=== PATIENT | male | born 1950 | race Caucasian/White ===

== ENCOUNTER 2021-07-15 07:45 | Day surgery (SDC) | payer OTHER ==
[2021-07-13 11:43] VITALS: BMI 26.6
[~2021-07-15 07:45] MED LIST: LACTATED RINGERS 1,000 ML IV SCH
[2021-07-15 08:30] VITALS: RESP 16; TEMP 97.5
[2021-07-15] MEDS ORDERED: LIDOCAINE 1% (10MG/ML) FOR IV START INTRADERMA ONE (08:35)
[2021-07-15] MEDS ORDERED: PROPOFOL 10 MG/ML 20 ML VIAL IV ONE (09:22)
[2021-07-15 09:45] VITALS: PULSE 78
--- NOTE | 2021-07-15 09:46 | P.PCN ---
Date of Procedure: 07/15/21 Procedure(s) Performed: BRIEF HISTORY: Patient is a 71-year-old pleasant white male scheduled for an elective colonoscopy as a part of screening for colorectal neoplasia. PROCEDURE PERFORMED: Colonoscopy biopsy. PREOPERATIVE DIAGNOSIS: Screening for colon cancer. IV sedation per Anesthesia. PROCEDURE: After informed consent was obtained, the patient, was brought into the endoscopy unit. IV sedation was administered by Anesthesia under continuous monitoring. Digital rectal examination was normal. Initially the Olympus CF-160 flexible video colonoscope was then inserted in the rectum, gradually advanced into the cecum without any difficulty. Careful examination was performed as the scope was gradually being withdrawn. Ileocecal valve and the appendiceal orifice were visualized and appeared normal. Prep was excellent. Mucosa of the cecum, ascending colon, transverse colon, descending colon, sigmoid colon, and rectum appeared normal. As a millimeter polyp noted in the sigmoid colon that was removed by cold biopsy. Moderate sigmoid diverticulosis seen. Retroflexion was performed in the rectum and no lesions were seen. The patient tolerated the procedure well. IMPRESSION: 3 mm sigmoid: Polyp status post biopsy Moderate sigmoid diverticulosis Recommendations Findings of this examination were were discussed with the patient as well as his family. He was advised to with the biopsy results. If the biopsy results adenoma he can have a repeat colonoscopy in 5 years. .
[2021-07-15 10:04] VITALS: BP 126/84
== END 2021-07-15 10:40 ==
LOC: ORWHC2ENDO 07:45
PROVIDERS: ATTEND Internal Medicine Gastroenterology
DX: Z12.11 Encounter for screening for malignant neoplasm of colon (principal); D12.5 Benign neoplasm of sigmoid colon; K57.30 Diverticulosis of large intestine without perforation or abscess without bleeding; I10 Essential (primary) hypertension; Z85.46 Personal history of malignant neoplasm of prostate; K21.9 Gastro-esophageal reflux disease without esophagitis; Z79.1 Long term (current) use of non-steroidal anti-inflammatories (NSAID); Z79.899 Other long term (current) drug therapy; Z98.890 Other specified postprocedural states; Z88.8 Allergy status to other drugs, medicaments and biological substances
CPT/HCPCS: 88305; 45380; J2704

== ENCOUNTER → 2021-07-30 | Outpatient (CLI) | payer OTHER ==
--- NOTE | 2021-07-30 17:06 | MR ---
EXAMINATION TYPE: MR lumbar spine wo con DATE OF EXAM: 07/30/2021 COMPARISON: None HISTORY: Low back pain TECHNIQUE: Multiplanar, multisequence images of the lumbar spine were acquired without IV contrast. The lumbar vertebral segments are normal in height. There is a grade 2 anterolisthesis of L5 on S1 secondary to bilateral spondylolysis of L5. The disc spaces are normal in height. There is no lumbar disc herniation. There is no spinal stenosis or neuroforaminal stenosis Impression: Grade two anterolisthesis of L5 on S1 secondary to bilateral spondylolysis of L5. No disc herniatio n or spinal stenosis
== END | disposition home or self-care (01) ==
LOC: RADMRIMAIN 14:26
PROVIDERS: ATTEND Physician Assistant
DX: M54.50 Low back pain, unspecified (principal)
CPT/HCPCS: 72148

== ENCOUNTER → 2022-05-16 | Outpatient (CLI) | payer OTHER ==
--- NOTE | 2022-05-16 11:21 | MR ---
EXAMINATION TYPE: MR lumbar spine wo con DATE OF EXAM: 05/16/2022 COMPARISON: MRI 07/30/2021, CT scan 05/05/2022 HISTORY: LUMBAR RADICULOPATHY, back pain TECHNIQUE: T1 and T2 axial and sagittal images of the lumbar spine are submitted. FINDINGS: There is no abnormal signal seen within the visualized spinal cord or paraspinal soft tissu es. Multiple vertebral body hemangioma. At L1-2 there is degenerative disc disease with no discrete herniation or canal stenosis. No foramina l encroachment. Neural foramina remain patent. At L2-3 there is sagittal disc bulging with no evidence of disc herniation, canal stenosis, or forami nal encroachment. Hypertrophic change of the facets. At L3-4 there is degenerative disc disease with facet arthropathy. No foraminal encroachment or canal stenosis. No disc herniation. Minimal sagittal disc bulging. At L4-5 there is degenerative disc disease with facet arthropathy. No canal stenosis or foraminal enc roachment. At L5-S1 there is grade 2 anterolisthesis with bilateral spondylolysis of L5. Severe degenerative dis c disease. Moderate to severe bilateral foraminal encroachment. IMPRESSION: 1. Severe degenerative disc disease L5-S1 with grade 2 anterolisthesis secondary to bilateral spondyl olysis. 2. Multilevel degenerative disc disease.
== END | disposition home or self-care (01) ==
LOC: RADMRIMAIN 10:12
PROVIDERS: ATTEND Orthopaedic Surgery
DX: M43.16 Spondylolisthesis, lumbar region (principal); M54.16 Radiculopathy, lumbar region
CPT/HCPCS: 72148

== ENCOUNTER → 2022-07-21 | Outpatient (CLI) | payer OTHER ==
--- NOTE | 2022-07-21 10:35 | XR ---
EXAMINATION TYPE: XR chest 2V DATE OF EXAM: 07/21/2022 10:11 AM COMPARISON: None TECHNIQUE: XR chest 2V Frontal and lateral views of the chest. CLINICAL INDICATION:Male, 72 years old with history of [id number]; FINDINGS: Lungs/Pleura: There is no evidence of pleural effusion, focal consolidation, or pneumothorax. Pulmonary vascularity: Unremarkable. Heart/mediastinum: Cardiomediastinal silhouette is unremarkable. Musculoskeletal: No acute osseous pathology. IMPRESSION: No acute cardiopulmonary disease/process.
[2022-07-21 17:33] LABS: Basophils # (A) 0.04 X 10*3/uL (0.00-0.10); Basophils % (A) 0.8 %; Eosinophils # (A) 0.19 X 10*3/uL (0.04-0.35); HCT 40.7 % (39.6-50.0); HGB 13.5 g/dL (13.0-17.0); Immature Grans, Automated 0.2 %; Lymphocytes # (A) 0.95 X 10*3/uL (0.90-5.00); Lymphocytes % (A) 20.2 %; MCH 30.4 pg (27.0-32.0); MCHC 33.2 g/dL (32.0-37.0); MCV 91.7 fL (80.0-97.0); Mean Platelet Volume 10.6 fL (9.5-12.2); Monocytes # (A) 0.46 X 10*3/uL (0.20-1.00); Monocytes % (A) 9.8 %; NRBC Per 100 WBC 0 /100 WBCS (0.0-0.0); Neutrophils # (A) 3.06 X 10*3/uL (1.80-7.70); Platelet Count 272 X 10*3/uL (140-440); RBC 4.44 X 10*6/uL (4.40-5.60); RDW 12.2 % (11.5-14.5); WBC 4.71 X 10*3/uL (4.50-10.00)
[2022-07-21 17:51] LABS: African American GFR (CKD) 107.7 (60.0-200.0); Anion Gap 9.3 mmol/L (10.00-18.00); Blood Urea Nitrogen 20.3 mg/dL (9.0-27.0); Calcium 9.1 mg/dL (8.7-10.3); Carbon Dioxide 26.7 mmol/L (20.0-27.5); Potassium 4.1 mmol/L (3.5-5.5)
[2022-07-21 18:17] LABS: INR 0.96 (0.90-1.11); Prothrombin Time 10.9 sec (9.9-11.9)
== END | disposition home or self-care (01) ==
LOC: LABPAT 09:51
PROVIDERS: ATTEND Orthopaedic Surgery
DX: Z01.812 Encounter for preprocedural laboratory examination (principal); M16.11 Unilateral primary osteoarthritis, right hip; Z22.322 Carrier or suspected carrier of Methicillin resistant Staphylococcus aureus
CPT/HCPCS: 71046; 80048; 85025; 85610; 87070; 93005

== ENCOUNTER 2022-08-01 08:12 | Observation (INO) | payer OTHER ==
[2022-07-27 15:50] VITALS: BMI 27.3
--- NOTE | 2022-07-31 08:52 | P.HPOR ---
History of Present Illness H&P Date: 07/31/22 Chief Complaint: Right hip pain The patient is a 72-year-old retired male presents with progressive right hip pain for the past year worsening recently. He notes pain with any weightbearing activities. He has a difficult time getting up from a seated position. He notes it does lock on him. He has groin and thigh pain. He also has a history of lower back problems. He's been using a cane. Review of Systems As per HPI Past Medical History Past Medical History: Cancer, GERD/Reflux, Hyperlipidemia, Hypertension, Osteoarthritis (OA) Additional Past Medical History / Comment(s): HX PROSTATE CANCER. RT KNEE-RT HIP VERY PAINFUL WHEN WEIGHT IS ON THEM History of Any Multi-Drug Resistant Organisms: None Reported Past Surgical History: Hernia Repair, Orthopedic Surgery, Prostate Surgery Additional Past Surgical History / Comment(s): RT KNEE SCOPE. BILAT INGUINAL HERNIA REPAIR. RT INGUINAL HERNIA REPAIR WITH MESH. COLONOSOCPY. PROSTATECTOMY 2000? PILONIDAL CYSTECTOMY Past Anesthesia/Blood Transfusion Reactions: No Reported Reaction Smoking Status: Former smoker - Past Family History Father Family Medical History: Deep Vein Thrombosis (DVT) Medications and Allergies Home Medications Medication Instructions Recorded Confirmed Type Ascorbic Acid [Vitamin C] 500 mg PO DAILY 07/13/21 07/27/22 History Aspirin 81 mg PO DAILY 07/13/21 07/27/22 History Calcium Carbonate/Vitamin D3 1 each PO DAILY 07/13/21 07/27/22 History [Calcium 600 mg-D3 10 Mcg (400 Iu)] Cholecalciferol [Vitamin D3 (25 50 mcg PO DAILY 07/13/21 07/27/22 History Mcg = 1000 Iu)] Enalapril [Vasotec] 5 mg PO BID 07/13/21 07/27/22 History Ezetimibe [Zetia] 10 mg PO DAILY 07/13/21 07/27/22 History Imipramine [Tofranil] 25 mg PO HS 07/13/21 07/27/22 History Meloxicam [Mobic] 7.5 mg PO TID 07/13/21 07/27/22 History Naproxen Sodium [Aleve] 220 mg PO BID 07/13/21 07/27/22 History Omeprazole [PriLOSEC] 20 mg PO AC-BRKFST 07/13/21 07/27/22 History amLODIPine [Norvasc] 5 mg PO BID 07/13/21 07/27/22 History Allergies Allergy/AdvReac Type Severity Reaction Status Date / Time Ukavwqh-CDN-SxJ Reductase AdvReac SEVERE LEG Verified 07/27/22 15:30 Inhibitor PAIN [Qpqkpey-Bae-Zto Reductase Inhibitor] Physical Examination - Hip right Gait: antalgic Tenderness with palpation: anterior Pain with motion: internal rotation and hip flexion ROM: flexion: 70 degrees ROM: internal rotation: 0 degrees (With pain) ROM: external rotation: 50 degrees Crepitus with motion: Yes Strength: extension: 5/5 Strength: flexion: 5/5 Strength: abduction: 5/5 Tests: impingement tests: positive Results The patient is a well-developed well-nourished male proximally 5 foot 8, 175 pounds of mesomorphic habitus. HEENT exam is nonfocal, neck is supple. He does have limited LS spine motion with tenderness about the lower lumbar spine. His distal neurovascular appears intact right lower extremity. - Diagnostic results Hip x-ray: image reviewed (2 views of the right hip obtained the office show severe osteoarthrosis with rnxm-gu-gorb changes. There appears to be some central femoral head collapse.) Assessment and Plan Assessment: Right hip severe osteoarthrosissymptomatic History of prostate cancer Plan: I talked with the patient regarding his condition along with treatment options. At this point is quite symptomatically and limited because of pain related to his right hip osteoarthrosis. After a thorough discussion he opted to proceed with surgery. We will proceed with right total hip arthroplasty utilizing a lateral approach as he's had previous inguinal hernia surgery on that side. We will institute DVT prophylaxis postoperatively. Risks and benefits are discussed at length in layman's terms. Time with Patient: Less than 30
[~2022-08-01 08:12] MED LIST changes: +ACETAMINOPHEN TAB 500 MG TAB PO PRN; -LACTATED RINGERS 1,000 ML IV SCH; +LIDOCAINE 1% (10MG/ML) FOR IV START INTRADERMA PRN; +MELOXICAM 7.5 MG TAB PO PRN; +MIDAZOLAM 2 MG/2 ML VIAL IV PRN; +TRANEXAMIC ACID 1,000 MG in SODIUM CHLORIDE 0.9% 100 ML IVPB PRN
[2022-08-01] MEDS: LACTATED RINGERS 1,000 ML IV SCH ×3 (09:14→17:08)
[2022-08-01] MEDS ORDERED: ONDANSETRON 4 MG/2 ML VIAL ONE (09:24)
[2022-08-01] MEDS ORDERED: ACETAMINOPHEN TAB 500 MG TAB ONE (09:24)
[2022-08-01] MEDS ORDERED: TRANEXAMIC ACID IN NACL,ISO-OS 1,000 MG in SALINE 1 100ML.BAG IVPB PRN (09:29)
[2022-08-01] MEDS ORDERED: DEXAMETHASONE SOD PHOSPHATE 4 MG/ML 1 ML VIAL IVP ONE (09:41)
[2022-08-01] MEDS ORDERED: MIDAZOLAM 2 MG/2 ML VIAL ONE (10:15)
[2022-08-01] MEDS ORDERED: TRANEXAMIC ACID IN NACL,ISO-OS 1,000 MG/100 ML BAG ONE (10:15)
[2022-08-01] MEDS ORDERED: ROPIVACAINE 5 MG/ML 30 ML VIAL ONE (10:15)
[2022-08-01] MEDS ORDERED: fentaNYL (PF) 50 MCG/ML 2 ML AMP ONE (10:15)
[2022-08-01] MEDS ORDERED: LIDOCAINE 2% INJ 20 MG/ML (2 ML VIAL) ONE (10:15)
[2022-08-01] MEDS ORDERED: PROPOFOL 10 MG/ML 20 ML VIAL IV ONE (10:15)
[2022-08-01] MEDS ORDERED: HYDROmorphone 0.5 MG/0.5 ML SYRINGE IVP PRN ×2 (11:52)
[2022-08-01] MEDS ORDERED: HYDROcodone/APAP 5-325MG 1 EACH TAB PO PRN (11:52)
[2022-08-01] MEDS ORDERED: NALOXONE 0.4 MG/ML 1 ML VIAL IV PRN (11:52)
--- NOTE | 2022-08-01 12:15 | P.OP ---
Date of Procedure: 08/01/22 Preoperative Diagnosis: Right hip severe osteoarthrosis Postoperative Diagnosis: Same Procedure(s) Performed: Right total hip arthroplastypress-fitlateral approach Implants: Depuy Corail size 12 standard collared press-fit femoral stem, 36+1.5 cobalt chrome femoral head, 58 mm Slater acetabular shell with neutral polyethylene liner. Anesthesia: regional, spinal Surgeon: Abhi Anderson [employer] Hand #1: Jadon Friend Estimated Blood Loss (ml): 100 Pathology: other (Femoral head) Condition: stable Disposition: PACU Indications for Procedure: The patient is a 72-year-old male who presents with progressive right hip pain secondary to osteoarthrosis despite conservative measures. A discussion of the risks and benefits of operative intervention versus continued conservative measures was made with the patient. He opted to proceed with surgery. Operative risks to include infection, neurovascular injury, development of blood clots, possible leg length discrepancy, possible instability, possible component loosening/failure and need for subsequent procedures was discussed. Informed consent was obtained. Operative Findings: As below Description of Procedure: The patient was brought to the operating room, and after induction of spinal anesthesia was placed in a lateral decubitus position. The bony prominences were appropriately padded. The pelvis was stable perpendicular to the floor with a pegboard. The right lower extremity was prepped and draped in normal fashion. A 12 cm incision was then made centered over the greater trochanter extending superiorly to level the ASIS and distally in line with the femoral shaft. The skin and subcutaneous tissues were divided sharply. Electrocautery was used for hemostasis. The fascia nhan and gluteus albino fascia was split in line with the skin incision. The muscle fibers were bluntly dissected proximally. A self-retaining retractor was placed. The anterior and posterior margins of the gluteus medius muscles identified and the anterior two thirds was detached from the greater trochanter with electrocautery. The gluteus minimus tendon was identified and detached in a similar fashion. A wide capsulotomy was performed. The femoral neck fracture was identified in the lower neck cut was made approximately 1 1/2 cm above the level of the lesser trochanter with a sagittal saw at a 45 the shaft. The head was then extracted with a corkscrew. Attention was then paid towards preparing the acetabular. Anterior and posterior retractors were placed. The remaining capsular labral tissues debride d sharply clearly defining the acetabular margins. Began reaming with a 49 mm reamer taking care to initially medialize, then reaming at 45 of abduction and 20 of anteversion. Sequential reaming is performed up to 57 mm. This was down to bleeding bony surface. A trial 58 mm acetabular shell was inserted at 45 of abduction and 20 of anteversion. This was fully seated. There was good rim f it and stability. A neutral polyethylene liner was then impacted. Care taken to avoid any soft tissue interposition. Attention was then paid towards preparing the proximal femur. A box chisel was used to open the metaphyseal region. A canal finder was used to find the femoral canal. Sequential broaching was performed up to a size 12. This is placed in 15 of anteversion with the leg perpendicular floor judging off the trans-epicondylar axis. There is good rotational stability. A calcar mill was used to fashion the medial calcar. A trial standard neck along with a 36 mm + 1.5 trial head was placed. The hip was gently reduced. It was taken through range of motion. I felt to be stable in flexion and extension with internal and external rotation. I felt there was adequate sikh of soft tissue tension. The hip was gently dislocated. The trial components removed. Pulsatile lavage was utilized. The final size 12 standard collared femoral stem was inserted again with the leg perpendicular to the floor in 15 of anteversion. Again there was good rotational stability. A 36 mm + 1.5 cobalt chrome femoral head was gently impacted. The hip was gently reduced. Again it was taken through motion and felt to be stable in flexion and extension with internal and external rotation. Pulsatile lavage was again utilized. With the leg in abduction the gluteus minimus and medius tendons reattached to the greater trochanter with #2 Ethibond suture. There was minimal drainage therefore a deep drain was not placed. The fascia nhan and gluteus albino fascia was closed with #2 Ethibond suture. The subcutaneous tissues were reapproximated interrupted 2-0 Vicryl sutures. The skin was reapproximated with 3-0 subcuticular strata fix suture. Skin tape and adhesive was applied. A sterile dressing was applied. The patient was awoken from sedation and transferred to recovery room in good condition. Blood loss was estimated 100 mL. No complications were incurred. Sponge and needle counts were correct in the case. Jadon DAVEY assisted during the major composes case to include exposure, implantation, and closure.
--- NOTE | 2022-08-01 12:36 | XR ---
EXAMINATION TYPE: XR Hip Limited RT DATE OF EXAM: 08/01/2022 12:32 PM INDICATION: Patient age:Male; 72 years old; Reason for study: Status post hip surgery, assess surgical alignment; [facility]. COMPARISON: Right hip radiograph 06/19/2022. TECHNIQUE: The right hip was examined in frontal projection. FINDINGS: Post surgical changes from right total hip arthroplasty. Hardware appears intact with appro priate alignment. No acute fracture or dislocation. There is associated soft tissue edema and subcuta neous gas. Multiple surgical clips demonstrated within the pelvis. IMPRESSION: Postsurgical changes from right total hip arthroplasty. Hardware appears intact with appropriate alig nment.
--- NOTE | 2022-08-01 13:06 | P.ANPRN ---
Procedure Note - Anesthesia - Nerve Block Performed Right Erector Spinae Single Time Out Performed: Yes (950) Date of Procedure: 08/01/22 Procedure Start Time: 09:51 Procedure Stop Time: 09:56 Location of Patient: PreOp Indication: Acute Post-Operative Pain, Requested by Surgeon Specifically requested for management of pain by : Abhi Anderson Sedation Type: Sedate with meaningful contact maintained Preparation: Sterile Prep Position: Sitting Catheter: None Needle Types: Pajunk Needle Gauge: 21 Ultrasound used to visualize needle placement: Yes Ultrasound used to observe medication spread: Yes Injectate: 0.5% Ropivacaine (see comment for volume) (30cc) Blood Aspirated: No Pain Paresthesia on Injection Noted: No Resistance on Injection: Normal Image Stored and Saved: Yes Events: Uneventful and Well Tolerated
[2022-08-01] MEDS: HYDROmorphone 0.5 MG/0.5 ML SYRINGE IVP PRN ×2 (15:09→15:19)
--- NOTE | 2022-08-01 17:05 | P.CONS ---
History of Present Illness - Reason for Consult Consult date: 08/01/22 Medical Management Requesting physician: Abhi Anderson - History of Present Illness History of Presenting Illness: Patient is a very pleasant 72-year-old male with a past medical history of hypertension, hyperlipidemia, GERD, prostate cancer status post prostatectomy, and osteoarthritis. He is currently admitted under orthopedic surgery team and underwent an elective right total hip arthroplasty secondary to severe osteoarthrosis. Surgical procedure was completed by Dr. Bates. We have been consulted for medical management throughout patient's hospitalization. Patient seen and fully evaluated at bedside. Patient reports having controlled postoperative pain stating currently being managed with current pain medication regimen. he denies having any numbness or tingling in his leg. He does report having issues with intermittent chronic numbness in his right toes secondary to a pinched nerve in his back but currently denies. Patient also denies experiencing any postoperative nausea or vomiting. He is tolerating oral intake. He denies having any headache, lightheadedness, dizziness, chest pain, palpitations, shortness of breath, or experiencing any numbness/ tingling/weakness/burning in his extremities. Patient denies having a history of DVT or PE but does report family history of blood clots. Review of systems: Pertinent positives and negatives as discussed in HPI, a complete review of systems was performed and all other systems are negative. Physical exam: Vital signs reviewed and stable. General: Nontoxic, no distress and appears stated age. Derm: Skin warm and dry, normal coloration for ethnicity. Head: Atraumatic, normocephalic and symmetric. Eyes: EOMs intact, no lid lag, and anicteric sclera Mouth: no lip lesions, mucus membranes moist Cardiovascular: regular rate and rhythm with normal S1S2, no murmur, positive posterior tibial pulses bilaterally, and cap refill < 2 seconds. Lungs: Respirations even, regular, and unlabored on room air. Lungs CTA bilaterally, no rhonchi, no rales, no wheezing, and no accessory muscle usage. Abdominal: soft, nontender to palpation, no guarding, no appreciable organomegaly Ext: ROM intact. No gross muscle atrophy, no edema, no contractures Neuro: Speech clear, face symmetrical and CN II-XII grossly intact with no noted focal neuro deficits Psych: Alert and oriented to person, place, time, and situation. Appropriate and pleasant affect. Assessment and Plan of Care: Status post Right total hip arthroplasty -Management by primary admitting orthopedic surgery team including DVT p rophylaxis, pain management, weightbearing, -DVT prophylaxis currently with Xarelto. Hypertension -Monitor vital signs and continue daily medication regimen with enalapril and Norvasc. Hyperlipidemia -Continue daily medication regimen with Zetia. -Continue heart healthy and carb consistent diet. GERD -GI prophylaxis with Protonix 40 mg daily. Thank you for allowing us to participate in the care of this pleasant patient. Do not hesitate to contact us with questions. Someone can be reached from the [facility] hospitalist group all hours of the day at [phone] or via [employer]. Past Medical History Past Medical History: Cancer, GERD/Reflux, Hyperlipidemia, Hypertension, Osteoarthritis (OA) Additional Past Medical History / Comment(s): HX PROSTATE CANCER. RT KNEE-RT HIP VERY PAINFUL WHEN WEIGHT IS ON THEM History of Any Multi-Drug Resistant Organisms: None Reported Past Surgical History: Hernia Repair, Orthopedic Surgery, Prostate Surgery Additional Past Surgical History / Comment(s): RT KNEE SCOPE. BILAT INGUINAL HERNIA REPAIR. RT INGUINAL HERNIA REPAIR WITH MESH. COLONOSOCPY. PROSTATECTOMY 2000? PILONIDAL CYSTECTOMY Past Anesthesia/Blood Transfusion Reactions: No Reported Reaction Smoking Status: Former smoker - Past Family History Father Family Medical History: Deep Vein Thrombosis (DVT) Medications and Allergies Home Medications Medication Instructions Recorded Confirmed Type Ascorbic Acid [Vitamin C] 500 mg PO DAILY 07/13/21 08/01/22 History Aspirin 81 mg PO DAILY 07/13/21 08/01/22 History Calcium Carbonate/Vitamin D3 1 each PO DAILY 07/13/21 08/01/22 History [Calcium 600 mg-D3 10 Mcg (400 Iu)] Cholecalciferol [Vitamin D3 (25 50 mcg PO DAILY 07/13/21 08/01/22 History Mcg = 1000 Iu)] Enalapril [Vasotec] 5 mg PO BID 07/13/21 08/01/22 History Ezetimibe [Zetia] 10 mg PO DAILY 07/13/21 08/01/22 History Imipramine [Tofranil] 25 mg PO HS 07/13/21 08/01/22 History Meloxicam [Mobic] 7.5 mg PO TID 07/13/21 08/01/22 History Naproxen Sodium [Aleve] 220 mg PO BID 07/13/21 08/01/22 History Omeprazole [PriLOSEC] 20 mg PO AC-BRKFST 07/13/21 08/01/22 History amLODIPine [Norvasc] 5 mg PO BID 07/13/21 08/01/22 History Allergies Allergy/AdvReac Type Severity Reaction Status Date / Time Rqaycpb-QYR-RlG Reductase AdvReac SEVERE LEG Verified 08/01/22 08:58 Inhibitor PAIN [Olpuuao-Kph-Ejt Reductase Inhibitor] Physical Exam Osteopathic Statement: *. No significant issues noted on an osteopathic structural exam other than those noted in the History and Physical/Consult. Vitals: Vital Signs Temp Pulse Pulse Resp BP BP Pulse Ox 08/01/22 16:00 79 16 130/68 98 08/01/22 15:00 71 16 130/69 96 08/01/22 14:30 84 16 131/81 98 08/01/22 14:05 75 16 122/78 92 L 08/01/22 13:50 68 16 128/75 92 L 08/01/22 13:35 59 L 16 118/68 94 L 08/01/22 13:20 60 16 125/77 94 L 08/01/22 13:05 61 16 117/72 96 08/01/22 12:54 67 16 122/73 99 08/01/22 12:39 77 16 123/74 93 L 08/01/22 12:24 84 16 116/75 98 08/01/22 12:09 97.2 F L 83 16 117/83 97 08/01/22 10:00 86 18 104/63 92 L 08/01/22 08:36 97.5 F L 103 H 20 141/91 97 Intake and Output 08/01/22 08/01/22 08/01/22 06:59 14:59 22:59 Intake Total 1050 400 Output Total 100 Balance 950 400 Intake: IV 1050 400 Output: Estimated Blood Loss 100 Other: Weight 81 kg Assessment and Plan Assessment: Attending note Serge Vargas NP rendered care for this patient independently, reviewed the findings and plan as documented in the note above. I did not physically speak with our examined the patient on this date.
[2022-08-01] MEDS: HYDROcodone/APAP 7.5-325MG 1 EACH TAB PO PRN (17:14)
[2022-08-01] MEDS: amLODIPine 5 MG TAB PO SCH (20:46)
[2022-08-01] MEDS ORDERED: IMIPRAMINE 25 MG TAB PO SCH (21:00)
[2022-08-01] MEDS ORDERED: SENNOSIDES-DOCUSATE SODIUM 1 EACH TAB PO SCH (21:00)
[2022-08-02] MEDS: HYDROcodone/APAP 7.5-325MG 1 EACH TAB PO PRN ×2 (06:11→12:38)
[2022-08-02] MEDS: amLODIPine 5 MG TAB PO SCH (07:24)
[2022-08-02] MEDS ORDERED: PANTOPRAZOLE 40 MG TABLET PO SCH (07:30)
[2022-08-02 07:35] VITALS: BP 125/76; PULSE 69; RESP 18; TEMP 97.7
[2022-08-02] MEDS ORDERED: CHOLECALCIFEROL 25 MCG (1000 IU) TABLET PO SCH (09:00)
[2022-08-02] MEDS ORDERED: RIVAROXABAN 10 MG TAB PO SCH (09:00)
[2022-08-02] MEDS ORDERED: EZETIMIBE 10 MG TAB PO SCH (09:00)
[2022-08-02] MEDS ORDERED: CALCIUM CARB-VIT D 500 MG-5 MCG TAB PO SCH (09:00)
[2022-08-02] MEDS ORDERED: ASCORBIC ACID 500 MG TAB PO SCH (09:00)
[2022-08-02] MEDS ORDERED: lisinopriL 20 MG TAB PO SCH (09:00)
--- NOTE | 2022-08-02 09:24 | P.DS ---
Providers Date of admission: 08/02/22 08:47 Expected date of discharge: 08/02/22 Attending physician: Abhi Anderson Consults: 08/01/22 11:55 Consult Physician Routine Consulting Provider: Nasrin Watkins Consult Reason/Comments: Medical Management S/P RIGHT TOTAL HIP ARTHROPLASTY Do you want consulting provider notified?: Yes Primary care physician: [facility] Hospital Course: Date of admission: 08/01/2022 Date of discharge: 08/02/2022 Admission diagnosis: Right hip osteoarthritis Discharge diagnosis: Same Attending physician: Dr. Anderson Surgical procedures: Right total hip arthroplasty Brief history: Patient is a 72-year-old male with a history of progressive primary right hip ostoarthritis. At this point patient has failed conservative treatment measures and has opted to proceed with a elective right total hip arthroplasty. Hospital course: Details of patient's surgery can be found in operative report. Patient tolerated the procedure well and was subsequently transported to orthopedic floor. Patient's orthopeidc and medical care was provided daily. Patient had daily laboratory tests performed for evaluation of overall blood counts. Patient had daily physical therapy to include strengthening range of motion as well as education with walker ambulation. Patient was treated with Xarelto for their postoperative DVT prophylaxis during their inpatient stay. Patient was noted to have a relatively uneventful postoperative course. Patient reported satisfactory pain control with oral pain medications by postoperative day 1. Patient showed satisfactory progress with physical therapy. Patient moved steadily through the program and had no difficulty meeting the goals by postoperative day 1. Given patient's otherwise satisfactory course and having met physical therapy goals, plan is to discharge patient home with health services on postoperative day 1. Discharge condition/disposition: Patient will be discharged home with health ser vices in stable condition. Discharge medications: Instructions are given on resumption of patient's normal daily medications per primary care recommendation, in addition patient will be prescribed [place]; Colace; Eliquis 2.5 mg BID x2 weeks. Discharge instructions: 1. Wound care and infection precautions, keep incision dry and covered while showering, no lotions, creams, moisturizers. No soaking, tubs, pools, hottubs. Do not scrub over the incision. 2. Weight-bear as tolerated with walker / cane until follow-up. 3. Ice and elevate when necessary. Do not exceed 20 minutes per hour with ice pack. 4. Utilize compression sleeve until seen at first follow up appointment. 5. Visiting nursing care. 6. Home physical therapy 7. Pain meds and anticoagulants per prescription. 8. Pain medication has potential to cause constipation. Increase oral fluid and fiber intake. Contact primary care provider if you have not had a bowel movement within 48 hours after discharge 9. No anti-inflammatory medication until discussed at first post operative visit, this including Motrin, Aleve, Mobic, Diclofenac 10. Follow up in office at 2 weeks postop with Lei Pineda PA-C / Jadon Friend PA-C 11. Follow up with your primary care doctor 7-10 days after discharge. 12. Contact [facility] with any questions, . Keep incision clean, dry, intact. While showering, cover fusion tape with Saran wrap. Keep fusion tape on until follow-up appointment in office in 2 weeks Medications: [place]; Colace; Eliquis 2.5 mg BID x2 weeks. Assessment: Right hip osteoarthritis Procedures: Right total hip arthroplasty Patient Condition at Discharge: Good Plan - Discharge Summary Discharge Rx Participant: Yes New Discharge Prescriptions: New Apixaban [Eliquis] 2.5 mg PO BID #60 tab Docusate [Colace] 100 mg PO DAILY #30 capsule HYDROcodone/APAP 7.5-325MG [[place] 7.5] 1 each PO Q6HR PRN #28 tab PRN Reason: Pain No Action Naproxen Sodium [Aleve] 220 mg PO BID Cholecalciferol [Vitamin D3 (25 Mcg = 1000 Iu)] 50 mcg PO DAILY Calcium Carbonate/Vitamin D3 [Calcium 600 mg-D3 10 Mcg (400 Iu)] 1 each PO DAILY amLODIPine [Norvasc] 5 mg PO BID Enalapril [Vasotec] 5 mg PO BID Ascorbic Acid [Vitamin C] 500 mg PO DAILY Omeprazole [PriLOSEC] 20 mg PO AC-BRKFST Imipramine [Tofranil] 25 mg PO HS Ezetimibe [Zetia] 10 mg PO DAILY Aspirin 81 mg PO DAILY Meloxicam [Mobic] 7.5 mg PO TID Discharge Medication List Ascorbic Acid [Vitamin C] 500 mg PO DAILY 07/13/21 [History] Aspirin 81 mg PO DAILY 07/13/21 [History] Calcium Carbonate/Vitamin D3 [Calcium 600 mg-D3 10 Mcg (400 Iu)] 1 each PO DAILY 07/13/21 [History] Cholecalciferol [Vitamin D3 (25 Mcg = 1000 Iu)] 50 mcg PO DAILY 07/13/21 [History] Enalapril [Vasotec] 5 mg PO BID 07/13/21 [History] Ezetimibe [Zetia] 10 mg PO DAILY 07/13/21 [History] Imipramine [Tofranil] 25 mg PO HS 07/13/21 [History] Meloxicam [Mobic] 7.5 mg PO TID 07/13/21 [History] Naproxen Sodium [Aleve] 220 mg PO BID 07/13/21 [History] Omeprazole [PriLOSEC] 20 mg PO AC-BRKFST 07/13/21 [History] amLODIPine [Norvasc] 5 mg PO BID 07/13/21 [History] Apixaban [Eliquis] 2.5 mg PO BID #60 tab 08/02/22 [Rx] Docusate [Colace] 100 mg PO DAILY #30 capsule 08/02/22 [Rx] HYDROcodone/APAP 7.5-325MG [[place] 7.5] 1 each PO Q6HR PRN #28 tab 08/02/22 [Rx] Follow up Appointment(s)/Referral(s): Jadon Friend PAC [PHYSICIAN INFORMATION SECURITY DIRECTOR] - 08/17/22 8:40 am Patient Instructions/Handouts: Total Hip Replacement (DC) Activity/Diet/Wound Care/Special Instructions: Discharge instructions: 1. Wound care and infection precautions, keep incision dry and covered while showering, no lotions, creams, moisturizers. No soaking, tubs, pools, hottubs. Do not scrub over the incision. 2. Weight-bear as tolerated with walker / cane until follow-up. 3. Ice and elevate when necessary. Do not exceed 20 minutes per hour with ice pack. 4. Utilize compression sleeve until seen at first follow up appointment. 5. Visiting nursing care. 6. Home physical therapy 7. Pain meds and anticoagulants per prescription. 8. Pain medication has potential to cause constipation. Increase oral fluid and fiber intake. Contact primary care provider if you have not had a bowel movement within 48 hours after discharge 9. No anti-inflammatory medication until discussed at first post operative visit, this including Motrin, Aleve, Mobic, Diclofenac 10. Follow up in office at 2 weeks postop with Lei Pineda PA-C / Jadon Friend PA-C 11. Follow up with your primary care doctor 7-10 days after discharge. 12. Contact [facility] with any questions, . Keep incision clean, dry, intact. While showering, cover fusion tape with Saran wrap. Keep fusion tape on until follow-up appointment in office in 2 weeks Medications: [place]; Colace; Eliquis 2.5 mg BID x2 weeks. Discharge Disposition: HOME WITH HOME HEALTH SERVICES
--- NOTE | 2022-08-02 09:29 | P.PN ---
Subjective Progress Note Date: 08/02/22 Principal diagnosis: Right hip osteoarthritis Patient seen at bedside this morning is currently sitting up in chair. Patient says he is ready to go home. Patient says he does have a walker for home. Patient says he did walk around to the hallway earlier this morning with physi marlys therapy and walk up and down steps. Patient says he has urinated several times since surgery yesterday. Patient denies chest pain, fever, shortness breath, nausea, vomiting, change in vision, loss of bowel/bladder control Objective - Vital Signs Vital signs: Vital Signs Temp 97.7 F 08/02/22 07:35 Pulse 69 08/02/22 07:35 Resp 18 08/02/22 07:35 BP 125/76 08/02/22 07:35 Pulse Ox 97 08/02/22 07:35 FiO2 Intake & Output 08/01/22 08/02/22 08/02/22 18:59 06:59 18:59 Intake Total 1450 250 Output Total 100 Balance 1350 250 Weight 81 kg Intake: IV 1450 Oral 250 Output: Estimated Blood Loss 100 Other: Voiding Method Toilet # Voids 1 4 4 # Bowel Movements 1 1 - Exam Right hip: Incision is clean, dry, and intact. The exofin fusion tape is in good condition. There is minimal soft tissue swelling and ecchymosis surrounding the medial and lateral aspects of the incision. Calf is soft, no tenderness with palpation. Plantar flexion, dorsiflexion, EHL, FHL are intact. Sensory exam to light touch throughout the extremity is intact, dorsal pedis pulses 2+. Assessment and Plan Assessment: 1. Right hip osteoarthritis - Postoperative day 1 status post right total hip arthroplasty Plan: 1. Right hip osteoarthritis - right total hip arthroplasty performed yesterday, 08/01/2022. Patient seen at bedside this morning. Patient does have a walker for home. Discharge home today with health services 2. Appreciate medical management 3. Pain management - [place]; Dilaudid 4. DVT prophylaxis - Xarelto in hospital; going home with Eliquis 2.5 mg BID x 2 weeks 5. GI prophylaxis - [place]; Colace at home 6. PT/OT - weightbearing as tolerated with walker 7. Encourage incentive spirometer use 8. Discharge planning - home with health services today Time with Patient: Less than 30
[2022-08-02 11:29] LABS: Basophils # (A) 0.01 X 10*3/uL (0.00-0.10); Basophils % (A) 0.1 %; Eosinophils # (A) 0 X 10*3/uL (0.04-0.35); Eosinophils % (A) 0 %; HCT 37.6 % (39.6-50.0); HGB 12.4 g/dL (13.0-17.0); Immature Grans, Automated 0.4 %; Lymphocytes # (A) 1.31 X 10*3/uL (0.90-5.00); Lymphocytes % (A) 16.1 %; MCH 29.7 pg (27.0-32.0); Mean Platelet Volume 10.3 fL (9.5-12.2); Monocytes # (A) 1.03 X 10*3/uL (0.20-1.00); Monocytes % (A) 12.7 %; NRBC Per 100 WBC 0 /100 WBCS (0.0-0.0); Neutrophils # (A) 5.75 X 10*3/uL (1.80-7.70); Neutrophils % (A) 70.7 %; Platelet Count 251 X 10*3/uL (140-440); RBC 4.18 X 10*6/uL (4.40-5.60); RDW 12.3 % (11.5-14.5); WBC 8.13 X 10*3/uL (4.50-10.00)
[2022-08-02 11:35] LABS: African American GFR (CKD) 97.2 (60.0-200.0); Anion Gap 12.4 mmol/L (10.00-18.00); BUN/Creat Ratio 23.67 Ratio (12.00-20.00); Blood Urea Nitrogen 21.3 mg/dL (9.0-27.0); Calcium 9.4 mg/dL (8.7-10.3); Carbon Dioxide 25.6 mmol/L (20.0-27.5); Non-African American GFR(CKD) 83.8 (60.0-200.0); Potassium 4.9 mmol/L (3.5-5.5)
--- NOTE | 2022-08-02 11:51 | P.PN ---
Subjective Progress Note Date: 08/02/22 Hospital course: Patient is a very pleasant 72-year-old male with a past medical history of hypertension, hyperlipidemia, GERD, prostate cancer status post prostatectomy, and osteoarthritis. He is currently admitted under orthopedic surgery team and underwent an elective right total hip arthroplasty secondary to severe osteoarthrosis. Surgical procedure was completed by Dr. Bates. We have been consulted for medical management throughout patient's hospitalization. Physical exam: Patient was seen and fully evaluated at bedside this morning. Patient appears to be doing very well. Patient sitting up in chair and has been ambulating with walker. Patient worked with PT/OT this morning. He reports postsurgical pain controlled and denies experiencing any numbness/tingling/weakness. Patient has been urinating without any reported difficulties and denies having any com plaints at this time. Patient reports that he is very eager to go home. Vital signs reviewed and are unremarkable. Morning labs also reviewed revealing mild expected postoperative blood loss anemia with hemoglobin of 12.4 and mild hyponatremia with sodium of 134. Medically, patient is stable for discharge home once cleared by primary admitting orthopedic surgery team. Vital signs reviewed and stable. General: Nontoxic, no distress and appears stated age. Derm: Skin warm and dry, normal coloration for ethnicity. Head: Atraumatic, normocephalic and symmetric. Eyes: EOMs intact, no lid lag, and anicteric sclera Mouth: no lip lesions, mucus membranes moist Cardiovascular: regular rate and rhythm with normal S1S2, no murmur, positive posterior tibial pulses bilaterally, and cap refill < 2 seconds. Lungs: Respirations even, regular, and unlabored on room air. Lungs CTA bilaterally, no rhonchi, no rales, no wheezing, and no accessory muscle usage. Abdominal: soft, nontender to palpation, no guarding, no appreciable organomegaly Ext: ROM intact. No gross muscle atrophy, no edema, no contractures Neuro: Speech clear, face symmetrical and CN II-XII grossly intact with no noted focal neuro deficits Psych: Alert and oriented to person, place, time, and situation. Appropriate and pleasant affect. Assessment and Plan of Care: Acute postsurgical blood loss anemia, expected finding. -Hemoglobin stable at 12.4. No need for further monitoring. Patient medically stable for discharge once cleared by primary admitting orthopedic surgery team. Status post Right total hip arthroplasty -Management by primary admitting orthopedic surgery team including DVT prophylaxis, pain management, weightbearing, -DVT prophylaxis currently with Xarelto. Hypertension -Monitor vital signs and continue daily medication regimen with enalapril and Norvasc. Hyperlipidemia -Continue daily medication regimen with Zetia. -Continue heart healthy and carb consistent diet. GERD -GI prophylaxis with Protonix 40 mg daily. Thank you for allowing us to participate in the care of this pleasant patient. Do not hesitate to contact us with questions. Someone can be reached from the [facility] hospitalist group all hours of the day at [phone] or via RegisterPatient. Objective - Vital Signs Vital signs: Vital Signs Temp 97.7 F 08/02/22 07:35 Pulse 69 08/02/22 07:35 Resp 18 08/02/22 09:08 BP 125/76 08/02/22 07:35 Pulse Ox 97 08/02/22 07:35 FiO2 Intake & Output 08/01/22 08/02/22 08/02/22 18:59 06:59 18:59 Intake Total 1450 250 Output Total 100 Balance 1350 250 Weight 81 kg Intake: IV 1450 Oral 250 Output: Estimated Blood Loss 100 Other: Voiding Method Toilet Toilet # Voids 1 4 4 # Bowel Movements 1 1 - Labs CBC & Chem 7: 08/02/22 06:28 08/02/22 06:28 Assessment and Plan Assessment: Attending note Serge stokes NP rendered care for this patient independently, reviewed the findings and plan as documented in the note above. I did not physically speak with or examined the patient on this date
== END 2022-08-02 12:45 | disposition home health service (06) ==
LOC: OR 08:12 → 4SSUR 12:03 → OR 08-02 08:24 → 4SSUR 08-02 08:47
PROVIDERS: ADMIT Orthopaedic Surgery; ATTEND Orthopaedic Surgery
DX: M16.11 Unilateral primary osteoarthritis, right hip (principal); D62 Acute posthemorrhagic anemia; G89.18 Other acute postprocedural pain; I10 Essential (primary) hypertension; E78.5 Hyperlipidemia, unspecified; K21.9 Gastro-esophageal reflux disease without esophagitis; Z85.46 Personal history of malignant neoplasm of prostate; Z90.79 Acquired absence of other genital organ(s); Z87.891 Personal history of nicotine dependence; Z79.82 Long term (current) use of aspirin; Z79.899 Other long term (current) drug therapy
CPT/HCPCS: 97161; 97535; 97165; 64999; 86900; 86901; 88305; 80048; 85025; 86850; 88311; 73501; 27130; G0378; C1776; J2250; J1100; J0690 ×2; J2405; J3010; J2795; J2704; J1170; J2001

== ENCOUNTER 2023-01-16 11:34 | Emergency (ER) | payer OTHER ==
--- NOTE | 2023-01-16 11:35 | ED ---
General Adult HPI - General Stated complaint: lump lt side of neck Time Seen by Provider: 01/16/23 11:35 Source: RN notes reviewed - History of Present Illness Initial comments: 73-year-old male presents to the emergency department with a bump in his left neck. Patient noticed a lump on Sunday01/12/2023.. He denies any pain or difficulty swallowing. He was evaluated by his primary care at the [place] [facility] who recommended he be evaluated in the emergency department for further imaging and lab tests.. He denies any fevers , fatigue, cough, dyspnea, chest pain, palpitations chills shortness of breath. He denies recent sick contacts. Denies recent trauma or falls. - Related Data Home Medications Medication Instructions Recorded Confirmed Ascorbic Acid [Vitamin C] 500 mg PO DAILY 07/13/21 08/01/22 Aspirin 81 mg PO DAILY 07/13/21 08/01/22 Calcium Carbonate/Vitamin D3 1 each PO DAILY 07/13/21 08/01/22 [Calcium 600 mg-D3 10 Mcg (400 Iu)] Cholecalciferol [Vitamin D3 (25 50 mcg PO DAILY 07/13/21 08/01/22 Mcg = 1000 Iu)] Enalapril [Vasotec] 5 mg PO BID 07/13/21 08/01/22 Ezetimibe [Zetia] 10 mg PO DAILY 07/13/21 08/01/22 Imipramine [Tofranil] 25 mg PO HS 07/13/21 08/01/22 Meloxicam [Mobic] 7.5 mg PO TID 07/13/21 08/01/22 Naproxen Sodium [Aleve] 220 mg PO BID 07/13/21 08/01/22 Omeprazole [PriLOSEC] 20 mg PO AC-BRKFST 07/13/21 08/01/22 amLODIPine [Norvasc] 5 mg PO BID 07/13/21 08/01/22 Previous Rx's Medication Instructions Recorded Apixaban [Eliquis] 2.5 mg PO BID #60 tab 08/02/22 Docusate [Colace] 100 mg PO DAILY #30 capsule 08/02/22 HYDROcodone/APAP 7.5-325MG [[place] 1 each PO Q6HR PRN #28 tab 08/02/22 7.5] Allergies Allergy/AdvReac Type Severity Reaction Status Date / Time Jjozrny-DGI-VwI Reductase AdvReac SEVERE LEG Verified 01/16/23 11:49 Inhibitor PAIN [Cexyxfh-Jar-Wng Reductase Inhibitor] Review of Systems ROS Statement: Those systems with pertinent positive or pertinent negative responses have been documented in the HPI. ROS Other: All systems not noted in ROS Statement are negative. Past Medical History Past Medical History: Cancer, GERD/Reflux, Hyperlipidemia, Hypertension Additional Past Medical History / Comment(s): HX PROSTATE CANCER. RT KNEE-RT HIP VERY PAINFUL WHEN WEIGHT IS ON THEM History of Any Multi-Drug Resistant Organisms: None Reported Past Surgical History: Hernia Repair, Orthopedic Surgery Additional Past Surgical History / Comment(s): RT KNEE SCOPE. BILAT INGUINAL HERNIA REPAIR. RT INGUINAL HERNIA REPAIR WITH MESH. COLONOSOCPY Past Anesthesia/Blood Transfusion Reactions: No Reported Reaction Past Alcohol Use History: Occasional - Past Family History Father Family Medical History: Deep Vein Thrombosis (DVT) General Exam - General Exam Comments Initial Comments: Visual Physical Exam Vital signs reviewed General: Well-appearing, nontoxic, no acute distress. Head: Normocephalic, atraumatic Eyes: PERRLA, EOMI ENT: Airway patent Chest: Nonlabored breathing Skin: No visual rash, normal skin tone Neuro: Alert and oriented 3 Musculoskeletal: No gross abnormalities General: Alert, in no acute distress Head: atraumatic normocephalic. Eyes PERRL, EOMI intact, mucous membranes moist, singular lymph node. Left submandibular region Respiratory: Lungs clear to auscultation bilaterally Cardiovascular: Rate regular rate and rhythm Abdominal: Soft without guarding or rebound Extremities: Normal inspection with full range of motion and normal capillary refill Neuroogic: alert and oriented 3, CN II-XII intact, able to ambulate with steady gait Skin: warm dry and intact with normal color Course Vital Signs 01/16/23 01/16/23 11:46 17:37 Temperature 97.8 F 98.1 F Pulse Rate 101 H 75 Respiratory 20 16 Rate Blood Pressure 164/87 137/86 O2 Sat by Pulse 99 97 Oximetry Medical Decision Making - Medical Decision Making Was pt. sent in by a medical professional or institution (, PA, FIELD MECHANIC/SITE LEAD, urgent care, hospital, or care home...) When possible be specific @ -[No] Did you speak to anyone other than the patient for history (EMS, parent, family, police, friend...)? What history was obtained from this source @ -[No] Did you review nursing and triage notes (agree or disagree)? Why? @ -[I reviewed and agree with nursing and triage notes] Were old charts reviewed (outside hosp., previous admission, EMS record, old EKG, old radiological studies, urgent care reports/EKG's, care home records)? Report findings @ -[No old charts were reviewed] Differential Diagnosis (chest pain, altered mental status, abdominal pain women, abdominal pain men, vaginal bleeding, weakness, fever, dyspnea, syncope, headache, dizziness, GI bleed, back pain, seizure, CVA, palpatations, mental health, musculoskeletal)? @ -[not applicable] EKG interpreted by me (3pts min.). @ -[As above] X-rays interpreted by me (1pt min.). @ -[None done] CT interpreted by me (1pt min.). @ -[None done] U/S interpreted by me (1pt. min.). @ -[None done] What testing was considered but not performed or refused? (CT, X-rays, U/S, labs)? Why? @ -[None] What meds were considered but not given or refused? Why? @ -[None] Did you discuss the management of the patient with other professionals (professionals i.e. , PA, FIELD MECHANIC/SITE LEAD, lab, RT, psych nurse, social media specialist, double end tenoner setter, teacher, personnel training officer, rn field case manager)? Give summary @ -[No] Was smoking cessation discussed for >3mins.? @ -[No] Was critical care preformed (if so, how long)? @ -[No] Were there social determinants of health that impacted care today? How? (Homelessness, low income, unemployed, alcoholism, drug addiction, transportation, low edu. Level, literacy, decrease access to med. care, assisted, rehab)? @ -[No] Was there de-escalation of care discussed even if they declined (Discuss DNR or withdrawal of care, Hospice)? DNR status @ -[No] What co-morbidities impacted this encounter? (DM, HTN, Smoking, COPD, CAD, Cancer, CVA, ARF, Chemo, Hep., AIDS, mental health diagnosis, sleep apnea, morbid obesity)? @ -[None] Was patient admitted / discharged? Hospital course, mention meds given and route, prescriptions, significant lab abnormalities, going to OR and other pertinent info. @ Discharged. This is a 73-year-old male who presents the emergency department with neck problem. Patient had a thorough history and physical exam performed. Physical exam is essentially unremarkable heart rate regular rate and rhythm, lungs clear to auscultation bilaterally abdomen is soft and nontender. Patient lab work and imaging performed which reveals: Labs remarkable for WBC 6.4, hemoglobin 12.2, BUNs 14, creatinine 0.60 Ultrasound of soft tissue reveals large mass which could present an enlarged lym ph node further evaluation of the CT of the neck is recommended CTe with contrast reveals palpable mass that overlies the left submandibular gland there is no cervical lymphadenopathy seen. I discussed the results in detail with the patient verbalized understanding and all questions were addressed. Return precautions for his discussed at length. Patient discharged in stable condition. Case discussed with Dr. Crystal, [facility] who agrees with plan of care Undiagnosed new problem with uncertain prognosis? @ -[No] Drug Therapy requiring intensive monitoring for toxicity (Heparin, Nitro, Insulin, Cardizem)? @ -[No] Were any procedures done? @ -[No] Diagnosis/symptom? @ -L neck lymphadenopathy Acute, or Chronic, or Acute on Chronic? @ -acute Uncomplicated (without systemic symptoms) or Complicated (systemic symptoms)? @ -uncomplicated Side effects of treatment? @ -[No] Exacerbation, Progression, or Severe Exacerbation? @ -[No] Poses a threat to life or bodily function? How? (Chest pain, [place], [place], pneumonia, PE, COPD, DKA, ARF, appy, cholecystitis, CVA, Diverticulitis, Homicidal, Suicidal, threat to staff... and all critical care pts) @ -low likelihood - Lab Data Result diagrams: 01/16/23 13:17 01/16/23 14:43 Lab Results 01/16/23 01/16/23 Range/Units 13:17 14:43 WBC 6.4 (3.8-10.6) k/uL RBC 4.69 (4.30-5.90) m/uL Hgb 12.2 L (13.0-17.5) gm/dL Hct 37.9 L (39.0-53.0) % MCV 80.8 (80.0-100.0) fL MCH 26.1 (25.0-35.0) pg MCHC 32.3 (31.0-37.0) g/dL RDW 13.9 (11.5-15.5) % Plt Count 298 (150-450) k/uL MPV 8.6 Neutrophils % 68 % Lymphocytes % 21 % Monocytes % 6 % Eosinophils % 2 % Basophils % 0 % Neutrophils # 4.3 (1.3-7.7) k/uL Lymphocytes # 1.3 (1.0-4.8) k/uL Monocytes # 0.4 (0-1.0) k/uL Eosinophils # 0.1 (0-0.7) k/uL Basophils # 0.0 (0-0.2) k/uL Sodium 133 L (137-145) mmol/L Potassium 4.3 (3.5-5.1) mmol/L Chloride 100 (98-107) mmol/L Carbon Dioxide 23 (22-30) mmol/L Anion Gap 10 mmol/L BUN 14 (9-20) mg/dL Creatinine 0.60 L (0.66-1.25) mg/dL Est GFR (CKD-EPI)AfAm >90 (>60 ml/min/1.73 sqM) Est GFR (CKD-EPI)NonAf >90 (>60 ml/min/1.73 sqM) Glucose 130 H (74-99) mg/dL Calcium 8.9 (8.4-10.2) mg/dL Total Bilirubin 0.5 (0.2-1.3) mg/dL AST 48 (17-59) U/L ALT 41 (4-49) U/L Alkaline Phosphatase 96 (38-126) U/L Total Protein 8.3 H (6.3-8.2) g/dL Albumin 4.3 (3.5-5.0) g/dL Disposition Clinical Impression: Lymph node enlargement Disposition: HOME SELF-CARE Condition: Stable Instructions (If sedation given, give patient instructions): Lymphadenopathy (ED) Additional Instructions: Follow-up with Jeri tomorrow Please return to the nearest emergency department if fever, fatigue, shortness of breath develop Is patient prescribed a controlled substance at d/c from ED?: No Referrals: [facility],Clinic [Primary Care Provider] - 1-2 days Tristin Gaspar MD [STAFF PHYSICIAN] - 1-2 days Time of Disposition: 17:21
--- NOTE | 2023-01-16 13:30 | US ---
EXAMINATION TYPE: US thyroid st tissue head/neck DATE OF EXAM: 01/16/2023 COMPARISON: EXAMINATION TYPE: US thyroid st tissue head/neck DATE OF EXAM: 01/16/2023 COMPARISON: NONE CLINICAL INDICATION: Male, 73 years old with history of neck lump; lump left neck TECHNIQUE: Grayscale imaging of the area of palpable abnormality. FINDINGS: Hypoechoic area seen measuring 2.8 x 1.4 x 2.8 cm with vascularity. No organizing fluid co llections. IMPRESSION: Left neck soft tissue mass which could represent enlarged lymph node. Further evaluation of the neck with CT of the neck with IV contrast is recommended.
[2023-01-16 15:25] LABS: ALT 41 U/L (4-49); African American GFR (CKD) >90 (>60 ml/min/1.73 sqM); Albumin 4.3 g/dL (3.5-5.0); Anion Gap 10 mmol/L; Blood Urea Nitrogen 14 mg/dL (9-20); Calcium 8.9 mg/dL (8.4-10.2); Carbon Dioxide 23 mmol/L (22-30); Chloride 100 mmol/L (98-107); Glucose 130 mg/dL (74-99); Non-African American GFR(CKD) >90 (>60 ml/min/1.73 sqM); Sodium 133 mmol/L (137-145); Total Bilirubin 0.5 mg/dL (0.2-1.3); Total Protein 8.3 g/dL (6.3-8.2)
[2023-01-16 15:28] LABS: Basophils % (A) 0 %; Eosinophils # (A) 0.1 k/uL (0-0.7); Eosinophils % (A) 2 %; HCT 37.9 % (39.0-53.0); HGB 12.2 gm/dL (13.0-17.5); Lymphocytes # (A) 1.3 k/uL (1.0-4.8); Lymphocytes % (A) 21 %; MCH 26.1 pg (25.0-35.0); MCHC 32.3 g/dL (31.0-37.0); MCV 80.8 fL (80.0-100.0); Mean Platelet Volume 8.6; Monocytes # (A) 0.4 k/uL (0-1.0); Monocytes % (A) 6 %; Neutrophils # (A) 4.3 k/uL (1.3-7.7); Neutrophils % (A) 68 %; Platelet Count 298 k/uL (150-450); RBC 4.69 m/uL (4.30-5.90); RDW 13.9 % (11.5-15.5); WBC 6.4 k/uL (3.8-10.6)
[2023-01-16 15:42] LABS: AST 48 U/L (17-59); Alkaline Phosphatase 96 U/L (38-126); Potassium 4.3 mmol/L (3.5-5.1)
--- NOTE | 2023-01-16 17:01 | CT ---
EXAMINATION TYPE: CT neck chest w con DATE OF EXAM: 01/16/2023 COMPARISON: Correlation ultrasound 01/16/2023 HISTORY: 73-year-old male RT neck mass, noted by BB. Hx prostate ca. TECHNIQUE: Contiguous axial scanning of the neck and chest performed with IV Contrast, patient inject ed with 100 mL of Isovue 300. Coronal/sagittal reconstructions performed. CT DLP: 676.7 mGycm Automated exposure control for dose reduction was used. FINDINGS: Neck: Visualized intracranial structures, paranasal sinuses, mastoid air cells are clear. Orbits and globes are intact. Slight leftward nasal septal deviation. The nasopharynx and oropharynx are clear. Epiglottis and prevertebral soft tissues are satisfactory. The glottic and subglottic structures as well as the tracheal column was clear. The thyroid gland and parotid glands are satisfactory. Asymmetrically larger left submandibular gland but without any surrounding inflammation or enhancing mass identified. Palpable marker directly overlies the left submandibular gland. No cervical lymphadenopathy is seen. CHEST: Heart is normal size without pericardial effusion. Three-vessel coronary artery calcifications are pr esent in remarkable for coronary artery disease. Conventional arch vessel branching anatomy and normal caliber aorta. There is mediastinal lymphadenopathy. Lower left paratracheal measuring up to 1.7 cm. Subcarinal jorge alberto uring up to 1.5 cm. Bilateral hilar measuring up to 1.8 cm. A few calcified pleural plaques scattered throughout. Mild diffuse bronchial wall thickening. No cons olidation or pleural effusion. Moderate to large hiatal hernia involving approximately half of the stomach in the lower chest. Fatty matrix hemangioma within the T3 and T10 vertebral body. Moderate degenerative disc disease midt horacic spine. IMPRESSION: NECK: 1. PALPABLE MARKER DIRECTLY OVERLIES THE LEFT SUBMANDIBULAR GLAND. THE LEFT SUBMANDIBULAR GLAND IS SL IGHTLY LARGER THAN THE RIGHT BUT NO ASSOCIATED INFLAMMATION OR ENHANCING MASS IS IDENTIFIED. NO CERVI PARIS LYMPHADENOPATHY SEEN. THE CLINICALLY PALPABLE ABNORMALITY SHOULD BE FOLLOWED CLINICALLY. IF ANY P ROGRESSIVE ENLARGEMENT, CONSIDER REPEAT ULTRASOUND. CHEST: 2. MEDIASTINAL AND BILATERAL HILAR LYMPHADENOPATHY MEASURING UP TO 1.8 CM. CORRELATE FOR POSSIBLE KAYLYNN OLOGIES INCLUDING UNDERLYING CONNECTIVE TISSUE DISEASES, ATYPICAL MYCOBACTERIAL/FUNGAL INFECTIONS, AN D LYMPHOMA. APPROPRIATE FOLLOW-UP AND MANAGEMENT RECOMMENDED. 3. MODERATE TO LARGE HIATAL HERNIA INVOLVING HALF OF THE STOMACH IN THE LOWER CHEST.
[2023-01-16 17:39] VITALS: BP 137/86; PULSE 75; RESP 16; TEMP 98.1
== END 2023-01-16 17:43 | disposition home or self-care (01) ==
LOC: EC 11:34
DX: K44.9 Diaphragmatic hernia without obstruction or gangrene (principal); R59.0 Localized enlarged lymph nodes; I10 Essential (primary) hypertension; K21.9 Gastro-esophageal reflux disease without esophagitis; E78.5 Hyperlipidemia, unspecified; Z79.899 Other long term (current) drug therapy; Z79.82 Long term (current) use of aspirin; Z88.2 Allergy status to sulfonamides
CPT/HCPCS: 36415; 80053; 85025; 76536; 70491; 71260; 99283; Q9967